=== PATIENT | female | born 1985 | race Caucasian/White ===

== ENCOUNTER 2024-03-15 09:28 | Outpatient (OUT) | payer SELFPAY ==
--- NOTE | 2024-03-15 | US_ITS ---
Patient Name: CHARANJIT BETH MR#: [id number] : 1985 Exam Date: 03/15/2024 Ordering Doctor: CARSON MACKENZIE CNP RADIOLOGY REPORT PROCEDURE: MM TOMOSYNTHESIS DIAGNOSTIC BI, 03/15/2024, 09:36 US BREAST LT LIMITED, 03/15/2024, 10:24 COMPARISON: None. INDICATIONS: Breast Lump N63.0 Calculator Name NCI Breast Cancer Risk Assessment Tool 5 Year Breast Cancer Risk 0.60% Lifetime Breast Cancer Risk 11.10% Personal Breast Cancer No Personal Ovarian Cancer No Treatments None Family Cancers None LOCATION: [facility] BREAST COMPOSITION: The breasts are heterogeneously dense,which may obscure small masses. FINDINGS: DIAGNOSTIC CATEGORY 5--HIGHLY SUGGESTIVE OF MALIGNANCY. HIGH PROBABILITY OF MALIGNANCY BASED ON THE FOLLOWING: RIGHT BREAST: No significant suspicious finding. LEFT BREAST: Within the anterior lower-inner quadrant is a 1.3 cm round mass versus cyst. Ultrasound evaluation demonstrates the heterogeneous solid nodule with internal blood flow and slightly spiculated margins at the 9 o'clock position 3.0 cm from the nipple, 1.2 x 1.0 x 0.9 cm in size. Ultrasound-guided tissue sampling is recommended. RECOMMENDATIONS: ULTRASOUND-GUIDED CORE BIOPSY: LEFT BREAST PLEASE NOTE: A NORMAL MAMMOGRAM DOES NOT EXCLUDE THE POSSIBILITY OF BREAST CANCER. A CLINICALLY SUSPICIOUS PALPABLE LUMP SHOULD BE BIOPSIED. Dictated by: Claudio Xiong M.D. on 03/15/2024 at 10:35 Approved by: Claudio Xiong M.D. on 03/15/2024 at 10:50
--- NOTE | 2024-03-15 09:36 | MM_ITS ---
Patient Name: CHARANJIT BETH MR#: [id number] : 1985 Exam Date: 03/15/2024 Ordering Doctor: CARSON MACKENZIE CNP RADIOLOGY REPORT PROCEDURE: MM TOMOSYNTHESIS DIAGNOSTIC BI, 03/15/2024, 09:36 US BREAST LT LIMITED, 03/15/2024, 10:24 COMPARISON: None. INDICATIONS: Breast Lump N63.0 Calculator Name NCI Breast Cancer Risk Assessment Tool 5 Year Breast Cancer Risk 0.60% Lifetime Breast Cancer Risk 11.10% Personal Breast Cancer No Personal Ovarian Cancer No Treatments None Family Cancers None LOCATION: [facility] BREAST COMPOSITION: The breasts are heterogeneously dense,which may obscure small masses. FINDINGS: DIAGNOSTIC CATEGORY 5--HIGHLY SUGGESTIVE OF MALIGNANCY. HIGH PROBABILITY OF MALIGNANCY BASED ON THE FOLLOWING: RIGHT BREAST: No significant suspicious finding. LEFT BREAST: Within the anterior lower-inner quadrant is a 1.3 cm round mass versus cyst. Ultrasound evaluation demonstrates the heterogeneous solid nodule with internal blood flow and slightly spiculated margins at the 9 o'clock position 3.0 cm from the nipple, 1.2 x 1.0 x 0.9 cm in size. Ultrasound-guided tissue sampling is recommended. RECOMMENDATIONS: ULTRASOUND-GUIDED CORE BIOPSY: LEFT BREAST PLEASE NOTE: A NORMAL MAMMOGRAM DOES NOT EXCLUDE THE POSSIBILITY OF BREAST CANCER. A CLINICALLY SUSPICIOUS PALPABLE LUMP SHOULD BE BIOPSIED. Dictated by: Claudio Xiong M.D. on 03/15/2024 at 10:35 Approved by: Claudio Xiong M.D. on 03/15/2024 at 10:50
== END 2024-03-15 09:29 | disposition home or self-care (01) ==
PROVIDERS: PCP Nurse Practitioner Family; Visit Provider Nurse Practitioner Family
DX: N63.0 Unspecified lump in unspecified breast (principal); N63.24 Unspecified lump in the left breast, lower inner quadrant
CPT/HCPCS: 76642; 77066; G0279

== ENCOUNTER 2024-03-20 12:52 | Day surgery (SDC) | payer SELFPAY ==
--- NOTE | 2024-03-20 12:58 | US_ITS ---
[address] [address] Patient Name: CHARANJIT BETH MRN: [id number] date: 1985 Sex: F Assigned Patient Location: US Current Patient Location: US Accession/Order Number: [id number] Exam Date: 03/20/2024 13:00 Report Date: 03/20/2024 14:37 At the request of: CARSON MACKENZIE Procedure: US breast vac bx w/ clip LT EXAM: US breast vac bx w/ clip LT HISTORY: Left Breast Mass COMPARISON: Ultrasound breast left Limited 03/15/2024 TECHNIQUE: After obtaining informed consent, ultrasound-guided biopsy was performed in the usual sterile manner. The location of the biopsy was then marked as indicated below. FINDINGS: Specimen #, Location: 4 core samples; left breast 9:00 1.2 cm heterogeneous hypoechoic well-defined mass. Biopsy Needle: 13 gauge vacuum core biopsy needle. Marker(s): A single metallic marker was placed in the appropriate targeted location. Medication: Buffered 1% Lidocaine with epinephrine administered locally. Complications: None. Pathology: Pending. US/US breast vac bx w/ clip LT IMPRESSION: 1. Uneventful ultrasound-guided breast biopsy. 2. Pathology results are pending. An addendum to this report will be provided after pathology results are available. Electronically authenticated by: ROCHELLE SETHI Date: 03/20/2024 14:37
--- NOTE | 2024-03-20 12:58 | MM_ITS ---
Patient Name: CHARANJIT BETH MR#: [id number] : 1985 Exam Date: 03/20/2024 Ordering Doctor: CARSON MACKENZIE CNP RADIOLOGY REPORT PROCEDURE: MM POST BIOPSY LT COMPARISON: US BREAST VAC BX W/ CLIP LT, 03/20/2024. MM TOMOSYNTHESIS DIAGNOSTIC BI, 03/15/2024. INDICATIONS: Left Breast Mass BREAST COMPOSITION: FINDINGS: Post-Procedure Mammogram for Marker Placement BIOPSY MARKER: A metallic marker has been placed in the targeted location within the lower-inner quadrant of the left breast; 9 o'clock position. BREAST FINDINGS: Expected post biopsy findings. RECOMMENDATIONS: Dictated by: Claudio Xiong M.D. on 03/20/2024 at 16:42 Approved by: Claudio Xiong M.D. on 03/20/2024 at 16:44
[2024-03-20 13:10] VITALS: BP 129/86; PULSE 52; O2SAT 98
[2024-03-20] MEDS: LIDOCAINE HCL 10 ML, SODIUM BICARBONATE 1 MEQ INJ (13:45)
[2024-03-20] MEDS: LIDOCAINE HCL/EPINEPHRINE 10 ML, SODIUM BICARBONATE 1 MEQ INJ (13:45)
--- NOTE | 2024-03-20 14:50 | SUR.PREOP ---
03/15/24 Pt instructed on procedure, date, time, and prep.
== END 2024-03-20 14:15 | disposition home or self-care (01) ==
LOC: US 12:52
PROVIDERS: Radiology Diagnostic Radiology; PCP Nurse Practitioner Family; Visit Provider Nurse Practitioner Family
DX: D24.2 Benign neoplasm of left breast (principal); N62 Hypertrophy of breast
CPT/HCPCS: 19083; 77065; 88305

== ENCOUNTER 2024-07-18 20:31 | Outpatient (REF) | payer OTHER, SELFPAY ==
--- OUTSIDE RECORDS SUMMARY | 2024-07-18 20:35 | XMS_ITS | CCD ---
Author Organization [facility] Team Providers Care Transitions Manager Rn Name Role Phone HOUSE, DR PEDERSON Primary Care Unavailable SITA, DR JUSTIN Attending Unavailable SITA, DR JUSTIN Consulting Unavailable SITA, DR JUSTIN Admitting Unavailable Problems Problem Classification Problem Date Documented Date Episodic/Chronic Immunizations and screening for infectious disease (1 source) Encounter for screening for human papillomavirus (HPV); Translations: [ENC SCREENING HUMAN PAPILLOMAVIRUS] Onset: 03-18-2022 Episodic Other screening for suspected conditions (not mental disorders or infectious disease) (4 sources) Encounter for screening for malignant neoplasm of cervix; Translations: [ENC SCREENING MALIG NEOPLASM CERV] Onset: 03-16-2022 Episodic Results Test Name Value Interpretation Reference Range Facil ity PAP ACOG PANEL 2: 30 to 65on 03-23-2022 . . Normal [facility] Comment on above: Result Comment: Performed at: WB Performed By: #### [id number] #### [facility] [address] [address] [address] Nigel Mcconnell Age Gdln ACOG Testing 30-65 Normal [facility] Comment on above: Performed By: #### [id number] #### [facility] [address] [address] [address] Nigel Mcconnell DIAGNOSIS: Comment Normal [facility] Comment on above: Result Comment: NEGATIVE FOR INTRAEPITHE LIAL LESION OR MALIGNANCY. Performed at: WB Performed By: #### [id number] #### [facility] [address] [address] [address] Nigel Mcconnell HPV Aptima Negative Normal Negative [facility] Comment on above: Result Comment: This nucleic acid amplif ication test detects fourteen high-risk HPV types (16,18,31,33,35,39,45,51,52,56,58,59,66,68) without differentiation. Performed at: =G Performed By: #### [id number] #### [facility] [address] [place] [address] Dr. Nigel Mcconnell Methodology: Comment Normal [facility] Comment on above: Result Comment: This liquid based ThinPr ep(R) pap test was screened with the use of an image guided system. Performed at: WB Performed By: #### [id number] #### [facility] [address] [place] [address] Dr. Nigel Mcconnell Note: Comment Normal [facility] Comment on above: Result Comment: The Pap smear is a scree aminata test designed to aid in the detection of premalignant and malignant conditions of the uterine cervix. It is not a diagnostic procedure and should not be used as the sole means of detecting cervical cancer. Both false-positive and false-negative reports do occur. . Performed at: WB Performed By: #### [id number] #### [facility] [address] [place] [address] Dr. Nigel Mcconnell Performed by: Comment Normal [facility] Comment on above: Result Comment: Ángela Cespedes, Cytotechno logist (ASCP) Performed at: WB Performed By: #### [id number] #### [facility] [address] [place] [address] Dr. Nigel Mcconnell Specimen adequacy: Comment Normal [facility] Comment on above: Result Comment: Satisfactory for evaluat ion. Endocervical and/or squamous metaplastic cells (endocervical component) are present. Performed at: WB Performed By: #### [id number] #### [facility] [address] [place] [address] Dr. Nigel Mcconnell Encounters Encounter Date Encounter Type Care Provider Facility Start: 03-16-2022 End: 03-16-[address] BG FARMER Facility:[facility] Payers Date Payer Category Payer Unknown [id number] 1961 Unknown [id number] Summary Purpose Family History No Family History Records Found Advance Directives No Advanced Directives Records Found Additional Source Comments INFORMATION SOURCE (unrecogn ized section and content) DATE CREATED AUTHOR 03/24/2022 The [facility] FOR RECORDS PERTAINING TO PATIENTS WHO ARE OR HAVE BEEN ENROLLED IN A CHEMICAL DEPENDENCY/SUBSTANCEABUSE PROGRAM, SOME INFORMATION MAY BE OMITTED. This clinical summary was aggregated from multiple sources. Caution should be exercised in using it in the provision of clinical care. This summary normalizes information from multiple sources, and as a consequence, information in this document may materially change the coding, format and clinical context of patient data. In addition, data may be omitted in some cases. CLINICAL DECISIONS SHOULD BE BASED ON THE PRIMARY CLINICAL RECORDS. [facility] provides no warranty or guarantee of the accuracy or completeness of information in this document.
[2024-07-23 13:08] LABS: Age Gdln ACOG Testing Note (.); HPV Aptima Negative (Negative); IGP, Aptima HPV, rfx 16/18,45 Note (.)
== END 2024-07-18 20:32 | disposition home or self-care (01) ==
LOC: LAB 20:31
PROVIDERS: PCP Nurse Practitioner Family; Visit Provider Physician Assistant
DX: Z01.419 Encounter for gynecological examination (general) (routine) without abnormal findings (principal)
CPT/HCPCS: 87624; 88175